=== PATIENT | female | born 1950 | race Two or more races ===

== ENCOUNTER → 2020-02-10 | Outpatient (CLI) | payer MEDICARE, OTHER ==
--- NOTE | 2020-02-10 13:58 | Diagnostic Imaging Report ---
Indication: Headache Technique: sagittal T1 fast spin echo, axial T1 FLAIR, axial T2 FLAIR, axial T2 FS PROPELLER, axial T2* GRE, axial diffusion weighted images. ADC and exponential ADC maps generated Comparison: none Findings: No abnormal areas of restricted diffusion to suggest acute infarction. No acute hemorrhage or edema. No mass effect nor midline shift. There is minimal age-related enlargement of the ventricles and extra-axial CSF spaces. There is evidence of prior bilateral cataract surgery. The sinuses are clear. The vascular flow voids are preserved. Impression: Negative for acute intracranial bleed, mass effect, or infarct Mild age-related volume loss
== END | disposition home or self-care (01) ==
LOC: MRI 11:58
DX: R51.9 Headache, unspecified (principal); H47.10 Unspecified papilledema
CPT/HCPCS: 70551